=== PATIENT | female | born 1960 | race Caucasian/White ===

== ENCOUNTER 2021-09-04 12:50 | Inpatient (IN) | payer SELFPAY ==
[2021-09-04 14:21] VITALS: BMI 46.7
[2021-09-04] MEDS ORDERED: Ondansetron PF 4 MG/2 ML Vial IVP PRN (16:38)
[2021-09-04] MEDS ORDERED: Ondansetron ODT 4 MG TAB PO PRN (16:38)
[2021-09-04] MEDS ORDERED: Calcium Carbonate 500 MG ChewTAB PO PRN (16:38)
[2021-09-04] MEDS ORDERED: Acetaminophen 325 MG TAB PO PRN (16:38)
[2021-09-04] MEDS ORDERED: Furosemide 40 MG/4 ML VIAL SLOW IVP SCH (16:45)
[2021-09-04] MEDS ORDERED: hydrOXYzine 25 MG TAB PO PRN (17:27)
[2021-09-04] MEDS ORDERED: Aspirin Chewable 81 MG TAB PO PRN (17:27)
[2021-09-04 17:43] LABS: Hemoglobin A1c 6.1 % (4.0-6.0)
[2021-09-04 17:45] LABS: Cardiac Risk 3.2 (Less than 4.5)
[2021-09-04 17:50] LABS: Troponin I 0.018 ng/mL (< 0.028)
[2021-09-04] MEDS: Albuterol Sulfate 1.25 MG/3 ML NEB NEB SCH (19:19)
[2021-09-04] MEDS: Atorvastatin Calcium 20 MG TAB PO SCH (20:19)
[2021-09-05 04:41] LABS: #Basophils 0.1 thou/uL (0.0-0.2); #Eosinphils 0.1 thou/uL (0.0-0.7); #Lymphocytes 3.3 thou/uL (1.20-3.40); #Monocytes 0.7 thou/uL (0.11-0.59); #Neutrophils 6.5 thou/uL (1.40-6.50); %Lymphocytes 30.6 % (21.0-51.0); %Monocytes 6.6 % (0.0-10.0); %Neutrophils 60.8 % (42.0-75.0); Hemoglobin 15.1 g/dL (12.0-16.0); Mean Corpuscular HGB CONC 31.8 g/dL (32.0-36.0); Mean Corpuscular Hemoglobin 34.4 pg (27.0-31.0); Mean Platelet Volume 8.8 fL (7.4-10.4); Platelet Count 118 thou/uL (130-400); RBC Distribution Width 14.7 % (11.5-14.5); Red Blood Cell (RBC) Count 4.38 mill/uL (4.20-5.40); White Blood Cell (WBC) Count 10.7 thou/uL (4.8-10.8)
[2021-09-05 04:50] LABS: ALT (SGPT) 25 U/L (8-55); AST (SGOT) 28 U/L (5-34); Albumin 2.9 g/dL (3.5-5.0); Alkaline Phosphatase 92 U/L (40-110); Anion Gap 11 mmol/L (10-20); BUN (Urea Nitrogen) 22 mg/dL (9.8-20.1); Bilirubin, Total 0.9 mg/dL (0.2-1.2); Calc. Creatinine Clearance 137 mL/min (70-130); Calcium 8.5 mg/dL (7.8-10.44); Carbon Dioxide 28 mmol/L (22-29); Chloride 103 mmol/L (98-107); Globulin 2.9 g/dL (2.4-3.5); Glucose 86 mg/dL (70-105); Potassium 3.8 mmol/L (3.5-5.1); Protein, Total 5.8 g/dL (6.0-8.3); Sodium 138 mmol/L (136-145)
[2021-09-05] MEDS: Furosemide 40 MG/4 ML VIAL SLOW IVP SCH ×2 (06:06→15:33)
[2021-09-05] MEDS: Albuterol Sulfate 1.25 MG/3 ML NEB NEB SCH ×2 (07:22→18:38)
[2021-09-05] MEDS: Cholecalciferol 1,000 UNITS (25 MCG) TAB PO SCH (08:19)
[2021-09-05] MEDS: Aspirin Chewable 81 MG TAB PO SCH (08:19)
[2021-09-05] MEDS: Enoxaparin Sodium 40 MG/0.4 ML SYRINGE SC SCH (08:20)
[2021-09-05] MEDS: predniSONE 20 MG TAB PO SCH (08:20)
[2021-09-05] MEDS: Escitalopram Oxalate 20 mg Tablet PO SCH (08:20)
[2021-09-05] MEDS: CLONAZEPAM 0.5 MG SL SCH ×2 (08:22→20:23)
[2021-09-05] MEDS: Melatonin 3 MG TAB PO PRN (20:23)
[2021-09-05] MEDS: Atorvastatin Calcium 20 MG TAB PO SCH (20:24)
[2021-09-06 04:38] LABS: #Basophils 0.1 thou/uL (0.0-0.2); #Eosinphils 0.2 thou/uL (0.0-0.7); #Lymphocytes 3.1 thou/uL (1.20-3.40); #Monocytes 0.7 thou/uL (0.11-0.59); %Eosinophils 1.4 % (0.0-10.0); %Lymphocytes 27.9 % (21.0-51.0); %Monocytes 6.5 % (0.0-10.0); %Neutrophils 63.3 % (42.0-75.0); Hemoglobin 15.2 g/dL (12.0-16.0); Mean Corpuscular HGB CONC 32.5 g/dL (32.0-36.0); Mean Corpuscular Hemoglobin 33.6 pg (27.0-31.0); Mean Platelet Volume 8.5 fL (7.4-10.4); Platelet Count 133 thou/uL (130-400); RBC Distribution Width 14.8 % (11.5-14.5); Red Blood Cell (RBC) Count 4.52 mill/uL (4.20-5.40); White Blood Cell (WBC) Count 11.1 thou/uL (4.8-10.8)
[2021-09-06 04:52] LABS: ALT (SGPT) 24 U/L (8-55); AST (SGOT) 26 U/L (5-34); Albumin 3.1 g/dL (3.5-5.0); Alkaline Phosphatase 89 U/L (40-110); Anion Gap 10 mmol/L (10-20); BUN (Urea Nitrogen) 21 mg/dL (9.8-20.1); Bilirubin, Total 1.1 mg/dL (0.2-1.2); Calc. Creatinine Clearance 149 mL/min (70-130); Calcium 8.6 mg/dL (7.8-10.44); Carbon Dioxide 34 mmol/L (22-29); Chloride 98 mmol/L (98-107); Globulin 3.1 g/dL (2.4-3.5); Glucose 80 mg/dL (70-105); Potassium 3.3 mmol/L (3.5-5.1); Protein, Total 6.2 g/dL (6.0-8.3); Sodium 139 mmol/L (136-145)
[2021-09-06] MEDS: Furosemide 40 MG/4 ML VIAL SLOW IVP SCH ×2 (05:51→17:27)
[2021-09-06] MEDS ORDERED: Potassium Chloride 20 MEQ TAB PO SCH (06:00)
[2021-09-06] MEDS: Albuterol Sulfate 1.25 MG/3 ML NEB NEB SCH ×2 (06:49→18:19)
[2021-09-06] MEDS ORDERED: Iopamidol 370 76% 100 ML VIAL ONE (08:27)
[2021-09-06] MEDS: Aspirin Chewable 81 MG TAB PO SCH (10:21)
[2021-09-06] MEDS: CLONAZEPAM 0.5 MG SL SCH ×2 (10:22→21:20)
[2021-09-06] MEDS: Escitalopram Oxalate 20 mg Tablet PO SCH (10:22)
[2021-09-06] MEDS: Enoxaparin Sodium 40 MG/0.4 ML SYRINGE SC SCH (10:22)
[2021-09-06] MEDS: predniSONE 20 MG TAB PO SCH (10:22)
[2021-09-06] MEDS: Cholecalciferol 1,000 UNITS (25 MCG) TAB PO SCH (10:22)
[2021-09-06] MEDS: Atorvastatin Calcium 20 MG TAB PO SCH (21:20)
[2021-09-07 05:03] LABS: ALT (SGPT) 20 U/L (8-55); AST (SGOT) 27 U/L (5-34); Albumin 3.2 g/dL (3.5-5.0); Alkaline Phosphatase 87 U/L (40-110); Anion Gap 15 mmol/L (10-20); BUN (Urea Nitrogen) 24 mg/dL (9.8-20.1); Bilirubin, Total 1.5 mg/dL (0.2-1.2); Calc. Creatinine Clearance 155 mL/min (70-130); Calcium 8.7 mg/dL (7.8-10.44); Carbon Dioxide 32 mmol/L (22-29); Chloride 96 mmol/L (98-107); Globulin 3.1 g/dL (2.4-3.5); Glucose 74 mg/dL (70-105); Potassium 3.5 mmol/L (3.5-5.1); Protein, Total 6.3 g/dL (6.0-8.3); Sodium 139 mmol/L (136-145)
[2021-09-07 05:11] LABS: #Basophils 0.1 thou/uL (0.0-0.2); #Eosinphils 0.1 thou/uL (0.0-0.7); #Monocytes 0.9 thou/uL (0.11-0.59); #Neutrophils 6.7 thou/uL (1.40-6.50); %Basophils 1.2 % (0.0-1.0); %Eosinophils 1.1 % (0.0-10.0); %Lymphocytes 27.8 % (21.0-51.0); %Monocytes 7.9 % (0.0-10.0); Hemoglobin 16.1 g/dL (12.0-16.0); Mean Corpuscular HGB CONC 31.5 g/dL (32.0-36.0); Mean Corpuscular Hemoglobin 33.3 pg (27.0-31.0); Mean Platelet Volume 8.8 fL (7.4-10.4); Platelet Count 115 thou/uL (130-400); Platelet Morphology Comment Appears Decreased; RBC Distribution Width 14.7 % (11.5-14.5); Red Blood Cell (RBC) Count 4.82 mill/uL (4.20-5.40); White Blood Cell (WBC) Count 10.9 thou/uL (4.8-10.8)
[2021-09-07] MEDS: Furosemide 40 MG/4 ML VIAL SLOW IVP SCH (05:50)
[2021-09-07] MEDS: Albuterol Sulfate 1.25 MG/3 ML NEB NEB SCH ×2 (07:22→18:22)
[2021-09-07] MEDS: Escitalopram Oxalate 20 mg Tablet PO SCH (09:56)
[2021-09-07] MEDS: Aspirin Chewable 81 MG TAB PO SCH (09:56)
[2021-09-07] MEDS: predniSONE 20 MG TAB PO SCH (09:56)
[2021-09-07] MEDS: Cholecalciferol 1,000 UNITS (25 MCG) TAB PO SCH (09:57)
[2021-09-07] MEDS: Enoxaparin Sodium 40 MG/0.4 ML SYRINGE SC SCH (09:57)
[2021-09-07] MEDS: CLONAZEPAM 0.5 MG SL SCH ×2 (09:58→20:53)
[2021-09-07] MEDS ORDERED: Furosemide 20 MG/2 ML VIAL SLOW IVP SCH (14:00)
[2021-09-07] MEDS: Furosemide 40 MG TAB PO SCH (14:09)
[2021-09-07] MEDS: Melatonin 3 MG TAB PO PRN (20:53)
[2021-09-07] MEDS: Atorvastatin Calcium 20 MG TAB PO SCH (20:53)
[2021-09-08 05:04] LABS: #Basophils 0.1 thou/uL (0.0-0.2); #Eosinphils 0.1 thou/uL (0.0-0.7); #Lymphocytes 3.1 thou/uL (1.20-3.40); #Monocytes 0.8 thou/uL (0.11-0.59); %Basophils 1.3 % (0.0-1.0); %Eosinophils 1.4 % (0.0-10.0); %Lymphocytes 30.3 % (21.0-51.0); Hemoglobin 15.8 g/dL (12.0-16.0); Mean Corpuscular HGB CONC 31.7 g/dL (32.0-36.0); Mean Corpuscular Hemoglobin 33.9 pg (27.0-31.0); Mean Platelet Volume 8.1 fL (7.4-10.4); Platelet Count 130 thou/uL (130-400); RBC Distribution Width 14.4 % (11.5-14.5); Red Blood Cell (RBC) Count 4.68 mill/uL (4.20-5.40); White Blood Cell (WBC) Count 10.1 thou/uL (4.8-10.8)
[2021-09-08 05:17] LABS: ALT (SGPT) 19 U/L (8-55); AST (SGOT) 25 U/L (5-34); Albumin 3.2 g/dL (3.5-5.0); Alkaline Phosphatase 81 U/L (40-110); BUN (Urea Nitrogen) 24 mg/dL (9.8-20.1); Bilirubin, Total 1.6 mg/dL (0.2-1.2); Calc. Creatinine Clearance 150 mL/min (70-130); Calcium 8.7 mg/dL (7.8-10.44); Globulin 3.2 g/dL (2.4-3.5); Glucose 72 mg/dL (70-105); Protein, Total 6.4 g/dL (6.0-8.3)
[2021-09-08 05:26] LABS: Anion Gap 14 mmol/L (10-20); Carbon Dioxide 32 mmol/L (22-29); Chloride 96 mmol/L (98-107); Potassium 3.4 mmol/L (3.5-5.1); Sodium 139 mmol/L (136-145)
[2021-09-08 05:55] LABS: Magnesium 1.6 mg/dL (1.6-2.6); Phosphorus 5.1 mg/dL (2.3-4.7)
[2021-09-08] MEDS: Albuterol Sulfate 1.25 MG/3 ML NEB NEB SCH (07:03)
[2021-09-08] MEDS ORDERED: Magnesium Oxide 400 MG TAB PO SCH (08:00)
[2021-09-08] MEDS ORDERED: Potassium Chloride 20 MEQ TAB PO SCH (08:00)
[2021-09-08 08:30] VITALS: BP 121/81; TEMP 97.1
[2021-09-08] MEDS ORDERED: Furosemide 40 MG TAB PO SCH (09:00)
[2021-09-08] MEDS: CLONAZEPAM 0.5 MG SL SCH (09:31)
[2021-09-08] MEDS: Cholecalciferol 1,000 UNITS (25 MCG) TAB PO SCH (09:49)
[2021-09-08] MEDS: Aspirin Chewable 81 MG TAB PO SCH (09:49)
[2021-09-08] MEDS: Enoxaparin Sodium 40 MG/0.4 ML SYRINGE SC SCH (09:49)
[2021-09-08] MEDS: Escitalopram Oxalate 20 mg Tablet PO SCH (09:49)
[2021-09-08] MEDS: predniSONE 20 MG TAB PO SCH (09:50)
[2021-09-08] MEDS: Furosemide 40 MG TAB PO SCH (09:50)
== END 2021-09-08 12:20 | disposition home or self-care (01) | DRG 291 ==
LOC: 2NO 14:05
PROVIDERS: ADMIT Family Medicine; ATTEND Emergency Medicine
DX: I50.33 Acute on chronic diastolic (congestive) heart failure (principal); J96.21 Acute and chronic respiratory failure with hypoxia; Z68.41 Body mass index [BMI] 40.0-44.9, adult; I31.3 Pericardial effusion (noninflammatory); K76.0 Fatty (change of) liver, not elsewhere classified; R73.03 Prediabetes; J44.9 Chronic obstructive pulmonary disease, unspecified; Z20.822 Contact with and (suspected) exposure to COVID-19; F17.210 Nicotine dependence, cigarettes, uncomplicated; I27.20 Pulmonary hypertension, unspecified; J84.112 Idiopathic pulmonary fibrosis; I27.81 Cor pulmonale (chronic); G47.33 Obstructive sleep apnea (adult) (pediatric); E66.01 Morbid (severe) obesity due to excess calories; Z99.81 Dependence on supplemental oxygen; Z90.49 Acquired absence of other specified parts of digestive tract; Z98.51 Tubal ligation status; Z79.899 Other long term (current) drug therapy; Z79.82 Long term (current) use of aspirin
CPT/HCPCS: 36415; 71275; 80053; 80061; 83036; 83735; 84100; 84145; 84443; 84484; 85025; 93306; 94640; J1650; J1940; J7512; U0003; U0005

== ENCOUNTER 2021-11-28 11:12 | Inpatient (IN) | payer MEDICAID, OTHER ==
[2021-11-28 14:03] VITALS: BMI 48.2
[2021-11-28] MEDS ORDERED: Furosemide 40 MG/4 ML VIAL SLOW IVP SCH (15:00)
[2021-11-28] MEDS ORDERED: hydrOXYzine 25 MG TAB PO PRN (15:06)
[2021-11-28 15:52] LABS: #Lymphocytes 2.8 thou/uL (1.20-3.40); #Monocytes 0.8 thou/uL (0.11-0.59); #Neutrophils 8.5 thou/uL (1.40-6.50); %Basophils 0.4 % (0.0-1.0); %Eosinophils 0.4 % (0.0-10.0); %Lymphocytes 23.3 % (21.0-51.0); %Monocytes 6.3 % (0.0-10.0); %Neutrophils 69.7 % (42.0-75.0); Hemoglobin 15.7 g/dL (12.0-16.0); MDiff Complete? YES; Macrocytosis SLIGHT = 6-15 cells (100X) (0-5/hpf); Mean Corpuscular HGB CONC 31.5 g/dL (32.0-36.0); Mean Corpuscular Hemoglobin 33.4 pg (27.0-31.0); Mean Platelet Volume 8.6 fL (7.4-10.4); Platelet Count 166 thou/uL (130-400); Platelet Morphology Comment Appears Adequate; Polychromasia SLIGHT = 2-3 cells (100X) (0-2/hpf); RBC Distribution Width 15.8 % (11.5-14.5); White Blood Cell (WBC) Count 12.1 thou/uL (4.8-10.8)
[2021-11-28 16:00] LABS: ALT (SGPT) 26 U/L (8-55); AST (SGOT) 33 U/L (5-34); Albumin 3.3 g/dL (3.5-5.0); Alkaline Phosphatase 153 U/L (40-110); Anion Gap 17 mmol/L (10-20); BUN (Urea Nitrogen) 30 mg/dL (9.8-20.1); Bilirubin, Total 1.6 mg/dL (0.2-1.2); Calc. Creatinine Clearance 108 mL/min (70-130); Calcium 8.8 mg/dL (7.8-10.44); Carbon Dioxide 24 mmol/L (22-29); Chloride 101 mmol/L (98-107); Estimated GFR 50; Globulin 3.4 g/dL (2.4-3.5); Glucose 91 mg/dL (70-105); Potassium 4.5 mmol/L (3.5-5.1); Protein, Total 6.7 g/dL (6.0-8.3); Sodium 137 mmol/L (136-145)
[2021-11-28 16:03] LABS: Troponin I 0.043 ng/mL (< 0.028)
[2021-11-28] MEDS ORDERED: Albuterol Sulfate 1.25 MG/3 ML NEB NEB SCH (18:30)
[2021-11-28] MEDS: clonazePAM 0.5 MG TAB PO SCH (20:27)
[2021-11-28] MEDS: Melatonin 3 MG TAB PO SCH (20:28)
[2021-11-28] MEDS: Atorvastatin Calcium 20 MG TAB PO SCH (20:28)
[2021-11-28] MEDS: Potassium Chloride 10 MEQ TAB PO SCH (20:28)
[2021-11-28] MEDS: Acetaminophen ER (8hr) 650 MG TAB PO PRN (20:28)
[2021-11-29 04:35] LABS: #Basophils 0.1 thou/uL (0.0-0.2); #Eosinphils 0.1 thou/uL (0.0-0.7); #Lymphocytes 3.5 thou/uL (1.20-3.40); #Monocytes 0.8 thou/uL (0.11-0.59); #Neutrophils 6.7 thou/uL (1.40-6.50); %Basophils 1.1 % (0.0-1.0); %Eosinophils 1.3 % (0.0-10.0); %Monocytes 7.3 % (0.0-10.0); %Neutrophils 59.4 % (42.0-75.0); Hemoglobin 14.8 g/dL (12.0-16.0); Mean Corpuscular HGB CONC 31.4 g/dL (32.0-36.0); Mean Corpuscular Hemoglobin 34.2 pg (27.0-31.0); Mean Platelet Volume 8.6 fL (7.4-10.4); Platelet Count 133 thou/uL (130-400); RBC Distribution Width 15.3 % (11.5-14.5); Red Blood Cell (RBC) Count 4.34 mill/uL (4.20-5.40); White Blood Cell (WBC) Count 11.2 thou/uL (4.8-10.8)
[2021-11-29 04:57] LABS: ALT (SGPT) 24 U/L (8-55); AST (SGOT) 29 U/L (5-34); Albumin 2.9 g/dL (3.5-5.0); Alkaline Phosphatase 124 U/L (40-110); Anion Gap 15 mmol/L (10-20); BUN (Urea Nitrogen) 30 mg/dL (9.8-20.1); Bilirubin, Total 1.2 mg/dL (0.2-1.2); Calc. Creatinine Clearance 126 mL/min (70-130); Calcium 8.3 mg/dL (7.8-10.44); Carbon Dioxide 26 mmol/L (22-29); Chloride 101 mmol/L (98-107); Estimated GFR 61; Globulin 2.8 g/dL (2.4-3.5); Glucose 96 mg/dL (70-105); Potassium 3.2 mmol/L (3.5-5.1); Protein, Total 5.7 g/dL (6.0-8.3); Sodium 139 mmol/L (136-145)
[2021-11-29] MEDS: Furosemide 40 MG/4 ML VIAL SLOW IVP SCH ×2 (06:15→16:02)
[2021-11-29 08:35] LABS: Troponin I 0.038 ng/mL (< 0.028)
[2021-11-29] MEDS ORDERED: Non-Formulary Item 1 EACH (Budesonide/Glycopyr/Formoterol [Breztri Aerosphere Inhaler] 10 IH SCH (09:00)
[2021-11-29] MEDS: Potassium Chloride 10 MEQ TAB PO SCH ×2 (11:19→20:55)
[2021-11-29] MEDS: Aspirin Chewable 81 MG TAB PO SCH (11:20)
[2021-11-29] MEDS: Escitalopram Oxalate 20 mg Tablet PO SCH (11:20)
[2021-11-29] MEDS: Cholecalciferol 1,000 UNITS (25 MCG) TAB PO SCH (11:20)
[2021-11-29] MEDS: predniSONE 5 MG TAB PO SCH (11:20)
[2021-11-29] MEDS: Acetaminophen ER (8hr) 650 MG TAB PO PRN (11:21)
[2021-11-29] MEDS: Enoxaparin Sodium 40 MG/0.4 ML SYRINGE SC SCH (11:21)
[2021-11-29] MEDS: Budesonide 0.5 MG/2 ML NEB NEB SCH (19:25)
[2021-11-29] MEDS: Atorvastatin Calcium 20 MG TAB PO SCH (20:54)
[2021-11-29] MEDS: Melatonin 3 MG TAB PO SCH (20:54)
[2021-11-29] MEDS: clonazePAM 0.5 MG TAB PO SCH (20:54)
[2021-11-30 04:31] LABS: #Basophils 0.1 thou/uL (0.0-0.2); #Eosinphils 0.1 thou/uL (0.0-0.7); #Lymphocytes 2.7 thou/uL (1.20-3.40); #Monocytes 0.6 thou/uL (0.11-0.59); #Neutrophils 6.6 thou/uL (1.40-6.50); %Basophils 0.9 % (0.0-1.0); %Eosinophils 1.1 % (0.0-10.0); %Lymphocytes 26.9 % (21.0-51.0); %Monocytes 5.9 % (0.0-10.0); %Neutrophils 65.1 % (42.0-75.0); Hemoglobin 14.7 g/dL (12.0-16.0); Mean Corpuscular HGB CONC 31.9 g/dL (32.0-36.0); Mean Corpuscular Hemoglobin 34.4 pg (27.0-31.0); Mean Platelet Volume 8.7 fL (7.4-10.4); Platelet Count 131 thou/uL (130-400); RBC Distribution Width 15.3 % (11.5-14.5); Red Blood Cell (RBC) Count 4.27 mill/uL (4.20-5.40); White Blood Cell (WBC) Count 10.1 thou/uL (4.8-10.8)
[2021-11-30 04:55] LABS: ALT (SGPT) 24 U/L (8-55); AST (SGOT) 28 U/L (5-34); Alkaline Phosphatase 118 U/L (40-110); Anion Gap 13 mmol/L (10-20); BUN (Urea Nitrogen) 26 mg/dL (9.8-20.1); Calc. Creatinine Clearance 129 mL/min (70-130); Calcium 8.5 mg/dL (7.8-10.44); Carbon Dioxide 30 mmol/L (22-29); Chloride 98 mmol/L (98-107); Estimated GFR 63; Globulin 2.9 g/dL (2.4-3.5); Glucose 84 mg/dL (70-105); Potassium 3.3 mmol/L (3.5-5.1); Protein, Total 5.9 g/dL (6.0-8.3); Sodium 138 mmol/L (136-145)
[2021-11-30] MEDS: Furosemide 40 MG/4 ML VIAL SLOW IVP SCH ×2 (05:58→15:18)
[2021-11-30] MEDS: Budesonide 0.5 MG/2 ML NEB NEB SCH ×2 (07:19→18:32)
[2021-11-30] MEDS: Aspirin Chewable 81 MG TAB PO SCH (08:48)
[2021-11-30] MEDS: Potassium Bicarbonate/Cit Ac 20 MEQ TAB PO SCH ×2 (08:49→17:22)
[2021-11-30] MEDS: Cholecalciferol 1,000 UNITS (25 MCG) TAB PO SCH (08:49)
[2021-11-30] MEDS: predniSONE 5 MG TAB PO SCH (08:49)
[2021-11-30] MEDS: Escitalopram Oxalate 20 mg Tablet PO SCH (08:49)
[2021-11-30] MEDS: Enoxaparin Sodium 40 MG/0.4 ML SYRINGE SC SCH (08:50)
[2021-11-30] MEDS: Acetaminophen ER (8hr) 650 MG TAB PO PRN (08:54)
[2021-11-30] MEDS: Melatonin 3 MG TAB PO SCH (21:05)
[2021-11-30] MEDS: clonazePAM 0.5 MG TAB PO SCH (21:05)
[2021-11-30] MEDS: Atorvastatin Calcium 20 MG TAB PO SCH (21:05)
[2021-12-01] MEDS: Acetaminophen ER (8hr) 650 MG TAB PO PRN ×2 (03:32→21:48)
[2021-12-01 04:35] LABS: #Basophils 0.1 thou/uL (0.0-0.2); #Eosinphils 0.1 thou/uL (0.0-0.7); #Lymphocytes 3.1 thou/uL (1.20-3.40); #Monocytes 0.7 thou/uL (0.11-0.59); #Neutrophils 6.8 thou/uL (1.40-6.50); %Basophils 0.7 % (0.0-1.0); %Lymphocytes 28.7 % (21.0-51.0); %Monocytes 6.3 % (0.0-10.0); %Neutrophils 63.3 % (42.0-75.0); Hemoglobin 14.8 g/dL (12.0-16.0); Mean Corpuscular HGB CONC 32.9 g/dL (32.0-36.0); Mean Corpuscular Hemoglobin 35.5 pg (27.0-31.0); Mean Platelet Volume 8.7 fL (7.4-10.4); Platelet Count 130 thou/uL (130-400); RBC Distribution Width 15.2 % (11.5-14.5); Red Blood Cell (RBC) Count 4.17 mill/uL (4.20-5.40); White Blood Cell (WBC) Count 10.7 thou/uL (4.8-10.8)
[2021-12-01 04:59] LABS: ALT (SGPT) 24 U/L (8-55); AST (SGOT) 25 U/L (5-34); Alkaline Phosphatase 111 U/L (40-110); Anion Gap 15 mmol/L (10-20); BUN (Urea Nitrogen) 20 mg/dL (9.8-20.1); Bilirubin, Total 1.2 mg/dL (0.2-1.2); Calc. Creatinine Clearance 148 mL/min (70-130); Calcium 8.7 mg/dL (7.8-10.44); Carbon Dioxide 33 mmol/L (22-29); Chloride 97 mmol/L (98-107); Estimated GFR 76; Glucose 80 mg/dL (70-105); Potassium 3.5 mmol/L (3.5-5.1); Sodium 141 mmol/L (136-145)
[2021-12-01] MEDS: Furosemide 40 MG/4 ML VIAL SLOW IVP SCH ×2 (05:50→14:20)
[2021-12-01] MEDS: Budesonide 0.5 MG/2 ML NEB NEB SCH ×2 (06:48→19:00)
[2021-12-01] MEDS: Escitalopram Oxalate 20 mg Tablet PO SCH (08:49)
[2021-12-01] MEDS: Cholecalciferol 1,000 UNITS (25 MCG) TAB PO SCH (08:49)
[2021-12-01] MEDS: Potassium Chloride 10 MEQ TAB PO SCH ×2 (08:49→21:45)
[2021-12-01] MEDS: predniSONE 5 MG TAB PO SCH (08:49)
[2021-12-01] MEDS: Aspirin Chewable 81 MG TAB PO SCH (08:49)
[2021-12-01] MEDS: Enoxaparin Sodium 40 MG/0.4 ML SYRINGE SC SCH (08:50)
[2021-12-01] MEDS: Atorvastatin Calcium 20 MG TAB PO SCH (21:45)
[2021-12-01] MEDS: Melatonin 3 MG TAB PO SCH (21:45)
[2021-12-01] MEDS: clonazePAM 0.5 MG TAB PO SCH (21:46)
[2021-12-02 04:14] LABS: #Basophils 0.1 thou/uL (0.0-0.2); #Eosinphils 0.1 thou/uL (0.0-0.7); #Lymphocytes 3.1 thou/uL (1.20-3.40); #Monocytes 0.7 thou/uL (0.11-0.59); #Neutrophils 6.1 thou/uL (1.40-6.50); %Basophils 0.9 % (0.0-1.0); %Eosinophils 0.9 % (0.0-10.0); %Lymphocytes 30.7 % (21.0-51.0); %Monocytes 6.9 % (0.0-10.0); %Neutrophils 60.6 % (42.0-75.0); Hemoglobin 14.9 g/dL (12.0-16.0); Mean Corpuscular HGB CONC 32.2 g/dL (32.0-36.0); Mean Corpuscular Hemoglobin 34.6 pg (27.0-31.0); Mean Platelet Volume 8.3 fL (7.4-10.4); Platelet Count 126 thou/uL (130-400); Red Blood Cell (RBC) Count 4.29 mill/uL (4.20-5.40); White Blood Cell (WBC) Count 10.1 thou/uL (4.8-10.8)
[2021-12-02 04:37] LABS: ALT (SGPT) 24 U/L (8-55); AST (SGOT) 29 U/L (5-34); Alkaline Phosphatase 104 U/L (40-110); Anion Gap 16 mmol/L (10-20); BUN (Urea Nitrogen) 22 mg/dL (9.8-20.1); Bilirubin, Total 1.2 mg/dL (0.2-1.2); Calc. Creatinine Clearance 137 mL/min (70-130); Calcium 8.5 mg/dL (7.8-10.44); Carbon Dioxide 29 mmol/L (22-29); Chloride 97 mmol/L (98-107); Estimated GFR 70; Glucose 87 mg/dL (70-105); Potassium 3.5 mmol/L (3.5-5.1); Sodium 138 mmol/L (136-145)
[2021-12-02] MEDS: Furosemide 40 MG/4 ML VIAL SLOW IVP SCH (05:15)
[2021-12-02] MEDS: Budesonide 0.5 MG/2 ML NEB NEB SCH (07:04)
[2021-12-02 07:47] VITALS: TEMP 97.6
[2021-12-02] MEDS: Potassium Chloride 10 MEQ TAB PO SCH (09:05)
[2021-12-02] MEDS: predniSONE 5 MG TAB PO SCH (09:06)
[2021-12-02] MEDS: Aspirin Chewable 81 MG TAB PO SCH (09:06)
[2021-12-02] MEDS: Cholecalciferol 1,000 UNITS (25 MCG) TAB PO SCH (09:06)
[2021-12-02] MEDS: Escitalopram Oxalate 20 mg Tablet PO SCH (09:06)
[2021-12-02] MEDS: Enoxaparin Sodium 40 MG/0.4 ML SYRINGE SC SCH (09:07)
[2021-12-02 13:04] VITALS: BP 110/62
[2021-12-05] MEDS ORDERED: Non-Formulary Item 1 EACH (Semaglutide [Ozempic] 0.25 MG/0.2 ML Pen.Injctr) SC SCH (09:00)
== END 2021-12-02 13:08 | disposition home or self-care (01) | DRG 291 ==
LOC: 2NO 13:09 → OBSVTOIN 14:56
PROVIDERS: ADMIT Family Medicine; ATTEND Family Medicine
DX: I11.0 Hypertensive heart disease with heart failure (principal); I50.33 Acute on chronic diastolic (congestive) heart failure; J96.21 Acute and chronic respiratory failure with hypoxia; N17.9 Acute kidney failure, unspecified; Z68.42 Body mass index [BMI] 45.0-49.9, adult; Z20.822 Contact with and (suspected) exposure to COVID-19; J84.10 Pulmonary fibrosis, unspecified; J44.9 Chronic obstructive pulmonary disease, unspecified; F41.1 Generalized anxiety disorder; E11.9 Type 2 diabetes mellitus without complications; E66.9 Obesity, unspecified; G47.33 Obstructive sleep apnea (adult) (pediatric); K21.9 Gastro-esophageal reflux disease without esophagitis; F17.210 Nicotine dependence, cigarettes, uncomplicated; Z79.82 Long term (current) use of aspirin; Z79.51 Long term (current) use of inhaled steroids; Z79.899 Other long term (current) drug therapy; Z98.51 Tubal ligation status; Z90.49 Acquired absence of other specified parts of digestive tract
CPT/HCPCS: 36415; 71045; 80053; 83880; 84484; 85025; 93005; 93010; 93798; 94640; 97139; J1650; J1940; J7512; J7620; J7626; U0003; U0005